=== PATIENT | male | born 1990 | race African-American/Black ===

== ENCOUNTER 2016-09-12 14:00 | Outpatient (CLI) | payer MEDICAID | END 2016-09-12 14:30 | disposition home or self-care (01) | DX: R07.9 Chest pain, unspecified (principal) ==

== ENCOUNTER 2016-09-12 14:33 | Outpatient (CLI) | payer MEDICAID | END 2016-09-12 14:34 | disposition home or self-care (01) | DX: R07.9 Chest pain, unspecified (principal) ==

== ENCOUNTER 2016-09-12 14:55 | Outpatient (CLI) | payer MEDICAID | END 2016-09-12 14:56 | disposition home or self-care (01) | DX: R07.9 Chest pain, unspecified (principal) ==

== ENCOUNTER 2016-09-28 13:36 | Outpatient (CLI) | payer MEDICAID | END 2016-09-28 13:37 | disposition home or self-care (01) | DX: R89.9 Unspecified abnormal finding in specimens from other organs, systems and tissues (principal) ==

== ENCOUNTER 2017-06-27 14:44 | Outpatient (CLI) | payer MEDICAID ==
--- NOTE | 2017-06-28 11:00 | XRAY Report ---
LEFT HIP AND PELVIS: 06/27/2017 CLINICAL INDICATION: Pain. FINDINGS: Frontal view of the hips and pelvis and frogleg lateral view of the left hip demonstrate n o evidence of fracture or dislocation. The joint spaces are preserved. No radiopaque foreign body i s seen in the soft tissues. IMPRESSION: NORMAL LEFT HIP AND PELVIS. JOB #: [id number] EXT JOB #:[id number]
== END 2017-06-27 14:45 | disposition home or self-care (01) ==
LOC: DI.N 14:44
PROVIDERS: ATTEND Physician Assistant Medical
DX: M25.552 Pain in left hip (principal)

== ENCOUNTER 2018-06-07 07:11 | Emergency (ER) | payer MEDICAID ==
[2018-06-07 07:23] VITALS: BP 167/119
[2018-06-07] MEDS ORDERED: ERYTHROMYCIN OPHTH OINT 1 GM TUBE LEFTEYE STA (07:35)
--- NOTE | 2018-06-07 07:38 | ED Physician Documentation ---
PD HPI OPHTHO - Stated complaint Stated Complaint: LT EYE SWELLING - Chief complaint Chief Complaint: Heent - History obtained from History obtained from: Patient - History of Present Illness Timing - onset: Last night Timing - details: Still present Location: Left Associated symptoms: Swelling Contributing factors: Wears glasses, Other (Possible chemical exposure, BBQ seasoning.) Similar symptoms before: Has not had sx before - Additional information Additional information: The patient is a 27-year-old male who presents with soreness and swelling of his left lower eyelid. He first noticed it last night while driving home from work. He works in a [employer] kitchen, and thinks he may have gotten barbecue seasoning on his eyelid. He wears glasses, and denies any change in his visual acuity. He denies history of similar symptoms in the past. Review of Systems Constitutional: denies: Fever Eyes: reports: Other (Swelling left lower eyelid.). denies: Decreased vision Nose: denies: Congestion GI: denies: Nausea, Vomiting Skin: denies: Rash Neurologic: denies: Headache PD PAST MEDICAL HISTORY - Past Medical History Past Medical History: No Endocrine/Autoimmune: None - Past Surgical History Past Surgical History: No - Present Medications Home Medications: Ambulatory Orders Medication Instructions Recorded Confirmed No Known Home Medications 01/30/16 06/07/18 - Allergies Allergies/Adverse Reactions: Allergies Allergy/AdvReac Type Severity Reaction Status Date / Time No Known Drug Allergies Allergy Verified 06/07/18 07:23 - Social History Does the pt smoke?: No Smoking Status: Never smoker Does the pt drink ETOH?: No Does the pt have substance abuse?: No - Immunizations Immunizations are current?: Yes Immunizations: TDAP >10years/unknown - POLST Patient has POLST: No PD ED PE NORMAL - Vitals Vital signs reviewed: Yes (Initially hypertensive.) - General General: Alert and oriented X 3, Well developed/nourished - HEENT HEENT: Atraumatic, PERRL, EOMI, Other (Left lower eyelid is mildly swollen, with minimal erythema along the lid margin. No foreign body is detected. Conjunctiva is clear, without erythema.) - Respiratory Respiratory: No respiratory distress - Derm Derm: No rash Results - Vitals Vitals: Vital Signs - 24 hr 06/07/18 07:20 Temperature 36.6 C Heart Rate 78 Respiratory 18 Rate Blood Pressure 167/119 H O2 Saturation 100 Oxygen O2 Source Room air PD MEDICAL DECISION MAKING - ED course Complexity details: considered differential, d/w patient ED course: The patient's presentation is most consistent with inflammation of the left lower eyelid. There is no clinical evidence of stye or foreign body. Treatment in the emergency room included application of erythromycin ophthalmic ointment. The remainder of the tube was dispensed with the patient. I discussed with him the diagnosis, treatment and outpatient follow-up, as well as potentially worrisome signs or symptoms that should prompt reevaluation in the emergency department. Departure - Departure Disposition: 01 Home, Self Care Clinical Impression: Inflammation of eyelid, left Condition: Stable Instructions: ED Inflammation Eyelid Follow-Up: Slick Dutta PA-C [Primary Care Provider] - Comments: Apply antibiotic ointment to your left lower eyelid 4 times daily for the next 2 days. Follow-up with your primary physician or return to the emergency department if you develop increasing eyelid swelling, or otherwise worsening symptoms. Discharge Date/Time: 06/07/18 07:56
== END 2018-06-07 07:56 | disposition home or self-care (01) ==
LOC: ED 07:11
DX: H01.8 Other specified inflammations of eyelid (principal)
CPT/HCPCS: 99283; J3490